=== PATIENT | male | born 1965 | race African-American/Black ===

== ENCOUNTER 2019-04-05 18:43 | Inpatient (IN) ==
[2019-04-05] MEDS ORDERED: SODIUM CHLORIDE 0.9% 1,000 ML IV STA (19:01)
[2019-04-05] MEDS ORDERED: ONDANSETRON 4 MG/2 ML VIAL IV STA (19:01)
[2019-04-05] MEDS ORDERED: PANTOPRAZOLE 40 MG VIAL IV STA (19:02)
[2019-04-05 19:31] LABS: Basophils % 0.1 % (0.0-0.8); Hemoglobin 10.9 GM/DL (14.0-18.0); Immature Granulocytes % 0.4 %; Immature Granulocytes Absolute 0.05 #; Lymphocytes # 0.9 10*3/uL (1.4-4.0); Lymphocytes % 7.1 % (21.2-54.2); Mean Corpuscular HGB Conc 35.2 GM/DL (32-36); Mean Corpuscular Volume 77.3 FL (87-102); Mean Platelet Volume 10.5 FL (9.6-12.0); Monocytes % 3.2 % (1.7-12.7); Neutrophils % 89.2 % (38.7-73.9); Platelet Count 344 T/CUMM (130-400); Red Blood Count 4.01 MC/CUMM (3.8-5.5); White Blood Count 12.9 T/CUMM (4-12)
[2019-04-05 19:40] LABS: Albumin 3.5 G/DL (3.4-5.0); Bilirubin,Total 0.5 MG/DL (0.2-1.0); Osmolality,Calculated 277.7 MOS/KG (273-304); Total Protein 8.3 G/DL (6.4-8.3)
[2019-04-05 21:21] LABS: Apearance,Urine CLEAR (Clear); Bilirubin,Urine Negative (Negative); Blood, Urine Small mg/dL (Negative); Glucose,Urine (UA) >=500 mg/dL (Negative); Granular Casts,Urine 1 /LPF (0-1); Hyaline Casts,Urine 11 /LPF (0-3); Ketones,Urine 5 mg/dL (Negative); Mucus,Urine Occasional /LPF (Occasional); Nitrite,Urine Negative (Negative); Protein,Urine >=500 MG/DL; RBC,Urine 18 /HPF (0-4); Squamous Epithelial Cell,Urine Occasional /HPF (0-10); Urine Color Yellow (Yellow); Urine Specific Gravity 1.015 (1.001-1.035); Urine Urobilinogen < 2.0 EU/DL (0.2-1.0); WBC,Urine 1 /HPF (0-6)
[2019-04-05] MEDS ORDERED: NICOTINE 21 MG/24 HR PATCH TRANSDERM PRN (22:01)
[2019-04-05] MEDS ORDERED: ACETAMINOPHEN 325 MG TABLET PO PRN (22:01)
[2019-04-05] MEDS: MORPHINE 4 MG/1 ML VIAL IV PRN (23:25)
[2019-04-06] MEDS: SODIUM CHLORIDE 0.9% 1,000 ML IV SCH ×5 (00:45→23:46)
[2019-04-06] MEDS: metroNIDAZOLE INJ 500 MG in PREMIX 1 EACH IV SCH ×4 (00:55→23:42)
[2019-04-06] MEDS ORDERED: METOPROLOL TARTRATE 5 MG/5 ML VIAL IV ONE (01:04)
[2019-04-06] MEDS: cefTRIAXone 1,000 MG in SYRINGE 1 EACH IV SCH ×3 (02:02→21:33)
[2019-04-06 02:18] LABS: Barbiturates Screen,Urine Negative (Negative); Benzodiazepines Screen,Urine Negative (Negative); Cannabinoid Screen,Urine Negative (Negative); Opiate Screen,Urine Negative (Negative); Phencyclidine Screen,Urine Negative (Negative)
[2019-04-06] MEDS: HYDROmorphone 2 MG/1 ML VIAL IV PRN ×2 (02:33→06:44)
[2019-04-06] MEDS: hydrALAZINE 20 MG/1 ML VIAL IV PRN ×2 (03:29→04:32)
[2019-04-06 04:59] LABS: Albumin 3.2 G/DL (3.4-5.0); Bilirubin,Total 0.6 MG/DL (0.2-1.0); Calcium 9.2 MG/DL (8.5-10.1); Total Protein 7.5 G/DL (6.4-8.3)
[2019-04-06] MEDS: PANTOPRAZOLE 40 MG TABLET PO SCH (08:23)
[2019-04-06] MEDS: INSULIN ASPART PROTAMINE/ASPART 70/30 100 UNIT/ML SUBCUT SCH ×2 (08:29→21:34)
[2019-04-06] MEDS ORDERED: amLODIPine 10 MG TABLET PO ONE (08:31)
[2019-04-06] MEDS ORDERED: LACTULOSE 20 GM/30 ML UDCUP PO ONE (08:35)
[2019-04-06] MEDS: INSULIN LISPRO 100 UNIT/ML SUBCUT SCH ×4 (08:38→21:34)
[2019-04-06] MEDS: METOPROLOL TARTRATE 25 MG TABLET PO SCH ×2 (09:16→21:34)
[2019-04-06 11:09] LABS: Basophils % 0.3 % (0.0-0.8); Eosinophils % 0.1 % (0.00-10.9); Hematocrit 27.8 VOL% (42.0-52.0); Hemoglobin 9.6 GM/DL (14.0-18.0); Immature Granulocytes % 0.4 %; Immature Granulocytes Absolute 0.06 #; Lymphocytes # 1.3 10*3/uL (1.4-4.0); Lymphocytes % 8.3 % (21.2-54.2); Mean Corpuscular HGB Conc 34.5 GM/DL (32-36); Mean Corpuscular Volume 79.4 FL (87-102); Mean Platelet Volume 10.7 FL (9.6-12.0); Monocytes % 9.3 % (1.7-12.7); Neutrophils % 81.6 % (38.7-73.9); Platelet Count 325 T/CUMM (130-400); Red Cell Distribution Width 14.6 % (9.3-17.3); White Blood Count 15.3 T/CUMM (4-12)
[2019-04-06 17:29] LABS: Protein/Creatinine Ratio,Urine 9.4 RATIO
[2019-04-06] MEDS: LACTULOSE 20 GM/30 ML UDCUP PO SCH (21:34)
[2019-04-07 04:02] LABS: Basophils % 0.2 % (0.0-0.8); Eosinophils % 0.3 % (0.00-10.9); Hematocrit 24.8 VOL% (42.0-52.0); Hemoglobin 8.4 GM/DL (14.0-18.0); Immature Granulocytes % 0.3 %; Immature Granulocytes Absolute 0.03 #; Lymphocytes # 1.5 10*3/uL (1.4-4.0); Lymphocytes % 14.1 % (21.2-54.2); Mean Corpuscular HGB Conc 33.9 GM/DL (32-36); Mean Corpuscular Volume 80.5 FL (87-102); Mean Platelet Volume 11.3 FL (9.6-12.0); Monocytes % 11.2 % (1.7-12.7); Neutrophils % 73.9 % (38.7-73.9); Platelet Count 273 T/CUMM (130-400); Red Blood Count 3.08 MC/CUMM (3.8-5.5); Red Cell Distribution Width 14.4 % (9.3-17.3); White Blood Count 10.8 T/CUMM (4-12)
[2019-04-07 04:33] LABS: Albumin 2.5 G/DL (3.4-5.0); Bilirubin,Total 0.6 MG/DL (0.2-1.0); Calcium 8.1 MG/DL (8.5-10.1); Osmolality,Calculated 300.3 MOS/KG (273-304); Total Protein 5.8 G/DL (6.4-8.3)
[2019-04-07] MEDS: MORPHINE 4 MG/1 ML VIAL IV PRN ×2 (04:41→08:47)
[2019-04-07] MEDS: ONDANSETRON 4 MG/2 ML VIAL IV PRN ×3 (04:45→20:46)
[2019-04-07] MEDS: HYDROmorphone 2 MG/1 ML VIAL IV PRN ×3 (05:42→17:45)
[2019-04-07] MEDS: metroNIDAZOLE INJ 500 MG in PREMIX 1 EACH IV SCH ×3 (07:18→22:32)
[2019-04-07] MEDS ORDERED: POTASSIUM CHLORIDE 20 MEQ TABLET PO PRN (07:49)
[2019-04-07] MEDS: amLODIPine 10 MG TABLET PO SCH (08:46)
[2019-04-07] MEDS: PANTOPRAZOLE 40 MG TABLET PO SCH (08:47)
[2019-04-07] MEDS: LACTULOSE 20 GM/30 ML UDCUP PO SCH ×2 (08:47→22:22)
[2019-04-07] MEDS: METOPROLOL TARTRATE 50 MG TABLET PO SCH ×2 (08:47→22:22)
[2019-04-07] MEDS ORDERED: ALUM/MAG/SIMETH/LIDO VISC 1:1 30 ML BOTTLE PO ONE (09:24)
[2019-04-07] MEDS: FAMOTIDINE 20 MG/2 ML VIAL IV SCH (10:20)
[2019-04-07] MEDS: cefTRIAXone 1,000 MG in SYRINGE 1 EACH IV SCH ×2 (10:22→22:19)
[2019-04-07] MEDS: INSULIN LISPRO 100 UNIT/ML SUBCUT SCH ×4 (10:30→20:52)
[2019-04-07] MEDS: INSULIN ASPART PROTAMINE/ASPART 70/30 100 UNIT/ML SUBCUT SCH ×2 (10:30→20:50)
[2019-04-07] MEDS: hydrALAZINE 20 MG/1 ML VIAL IV PRN (12:17)
[2019-04-07 13:24] LABS: Bilirubin,Total 0.4 MG/DL (0.2-1.0); Calcium 8.5 MG/DL (8.5-10.1); Total Protein 7.1 G/DL (6.4-8.3)
[2019-04-07] MEDS: SODIUM CHLORIDE 0.9% 1,000 ML IV SCH ×2 (14:30→15:51)
[2019-04-07] MEDS: POTASSIUM CHLORIDE RIDER 10 MEQ in PREMIX 1 EACH IV PRN ×2 (17:40→20:55)
[2019-04-08] MEDS: hydrALAZINE 20 MG/1 ML VIAL IV PRN ×3 (00:09→16:52)
[2019-04-08] MEDS: HYDROmorphone 2 MG/1 ML VIAL IV PRN ×4 (02:18→19:19)
[2019-04-08] MEDS: SODIUM CHLORIDE 0.9% 1,000 ML IV SCH ×4 (03:38→21:22)
[2019-04-08] MEDS: metroNIDAZOLE INJ 500 MG in PREMIX 1 EACH IV SCH (06:41)
[2019-04-08 07:48] LABS: Basophils % 0.3 % (0.0-0.8); Eosinophils % 0.1 % (0.00-10.9); Hematocrit 29.4 VOL% (42.0-52.0); Hemoglobin 9.6 GM/DL (14.0-18.0); Immature Granulocytes % 0.6 %; Immature Granulocytes Absolute 0.08 #; Lymphocytes # 1.3 10*3/uL (1.4-4.0); Lymphocytes % 8.9 % (21.2-54.2); Mean Corpuscular HGB Conc 32.7 GM/DL (32-36); Mean Corpuscular Volume 83.1 FL (87-102); Mean Platelet Volume 10.9 FL (9.6-12.0); Monocytes % 8.6 % (1.7-12.7); Neutrophils % 81.5 % (38.7-73.9); Platelet Count 324 T/CUMM (130-400); Red Blood Count 3.54 MC/CUMM (3.8-5.5); Red Cell Distribution Width 14.6 % (9.3-17.3); White Blood Count 14.3 T/CUMM (4-12)
[2019-04-08 08:11] LABS: Alanine Aminotransferase 15 U/L (16-61); Albumin 2.9 G/DL (3.4-5.0); Alkaline Phosphatase 79 U/L (45-117); Aspartate Amino Transferase 17 U/L (0-37); Bilirubin,Total < 0.39 MG/DL (0.2-1.0); Blood Urea Nitrogen 50 MG/DL (7-18); Calcium 8.5 MG/DL (8.5-10.1); Glucose 380 MG/DL (74-106); Osmolality,Calculated 305.5 MOS/KG (273-304); Total Protein 6.9 G/DL (6.4-8.3)
[2019-04-08] MEDS: FAMOTIDINE 20 MG/2 ML VIAL IV SCH (08:51)
[2019-04-08] MEDS: ONDANSETRON 4 MG/2 ML VIAL IV PRN ×3 (08:54→19:14)
[2019-04-08] MEDS: LACTULOSE 20 GM/30 ML UDCUP PO SCH ×2 (08:56→21:13)
[2019-04-08] MEDS: METOPROLOL TARTRATE 50 MG TABLET PO SCH ×2 (08:56→21:13)
[2019-04-08] MEDS: amLODIPine 10 MG TABLET PO SCH (08:56)
[2019-04-08] MEDS: INSULIN ASPART PROTAMINE/ASPART 70/30 100 UNIT/ML SUBCUT SCH ×2 (09:00→21:42)
[2019-04-08] MEDS: INSULIN LISPRO 100 UNIT/ML SUBCUT SCH ×4 (09:01→21:40)
[2019-04-08] MEDS ORDERED: POLYETHYLENE GLYCOL 3350/ELECTROLYTES 4,000 ML BOTTLE PO ONE (10:24)
[2019-04-08] MEDS: cefTRIAXone 1,000 MG in SYRINGE 1 EACH IV SCH (10:44)
[2019-04-08] MEDS: metroNIDAZOLE 500 MG TABLET PO SCH (21:13)
[2019-04-09] MEDS: HYDROmorphone 2 MG/1 ML VIAL IV PRN ×4 (00:05→18:02)
[2019-04-09] MEDS: hydrALAZINE 20 MG/1 ML VIAL IV PRN ×2 (04:28→09:30)
[2019-04-09 04:45] LABS: Basophils % 0.3 % (0.0-0.8); Eosinophils % 0.1 % (0.00-10.9); Hematocrit 28.6 VOL% (42.0-52.0); Immature Granulocytes % 0.6 %; Immature Granulocytes Absolute 0.09 #; Lymphocytes # 1.2 10*3/uL (1.4-4.0); Lymphocytes % 8.3 % (21.2-54.2); Mean Corpuscular HGB Conc 31.5 GM/DL (32-36); Mean Corpuscular Volume 85.4 FL (87-102); Monocytes % 8.5 % (1.7-12.7); Neutrophils % 82.2 % (38.7-73.9); Platelet Count 303 T/CUMM (130-400); Red Blood Count 3.35 MC/CUMM (3.8-5.5); Red Cell Distribution Width 15.1 % (9.3-17.3); White Blood Count 14.3 T/CUMM (4-12)
[2019-04-09 05:10] LABS: Albumin 2.7 G/DL (3.4-5.0); Bilirubin,Total 0.4 MG/DL (0.2-1.0); Calcium 8.6 MG/DL (8.5-10.1); Osmolality,Calculated 310.1 MOS/KG (273-304); Total Protein 6.4 G/DL (6.4-8.3)
[2019-04-09] MEDS: SODIUM CHLORIDE 0.9% 1,000 ML IV SCH (06:00)
[2019-04-09] MEDS: POTASSIUM CHLORIDE RIDER 10 MEQ in PREMIX 1 EACH IV PRN (06:30)
[2019-04-09] MEDS: ONDANSETRON 4 MG/2 ML VIAL IV PRN (09:30)
[2019-04-09] MEDS: FAMOTIDINE 20 MG/2 ML VIAL IV SCH (09:31)
[2019-04-09] MEDS: LACTULOSE 20 GM/30 ML UDCUP PO SCH ×2 (10:22→20:41)
[2019-04-09] MEDS: METOPROLOL TARTRATE 50 MG TABLET PO SCH ×2 (10:22→20:41)
[2019-04-09] MEDS: metroNIDAZOLE 500 MG TABLET PO SCH ×2 (10:22→20:41)
[2019-04-09] MEDS: amLODIPine 10 MG TABLET PO SCH (10:22)
[2019-04-09] MEDS: INSULIN ASPART PROTAMINE/ASPART 70/30 100 UNIT/ML SUBCUT SCH ×2 (10:22→20:40)
[2019-04-09] MEDS: INSULIN LISPRO 100 UNIT/ML SUBCUT SCH ×4 (10:22→20:40)
[2019-04-09] MEDS: SODIUM CHLORIDE 23.4% CONC INJ 38.5 MEQ, SODIUM BICARB INJ 50 MEQ, POTASSIUM CHLORIDE I... IV SCH ×3 (10:27→23:21)
[2019-04-09] MEDS: cefTRIAXone 1,000 MG in SYRINGE 1 EACH IV SCH (10:27)
[2019-04-10] MEDS: HYDROmorphone 2 MG/1 ML VIAL IV PRN ×3 (05:03→20:16)
[2019-04-10 05:06] LABS: Calcium 8.4 MG/DL (8.5-10.1); Osmolality,Calculated 304.3 MOS/KG (273-304)
[2019-04-10 05:11] LABS: Albumin 2.7 G/DL (3.4-5.0); Bilirubin,Total 0.4 MG/DL (0.2-1.0); Calcium 8.2 MG/DL (8.5-10.1); Osmolality,Calculated 304.3 MOS/KG (273-304)
[2019-04-10] MEDS: SODIUM CHLORIDE 23.4% CONC INJ 38.5 MEQ, SODIUM BICARB INJ 50 MEQ, POTASSIUM CHLORIDE I... IV SCH ×2 (06:20→14:59)
[2019-04-10] MEDS ORDERED: LACTATED RINGERS 1,000 ML IV SCH (08:00)
[2019-04-10] MEDS: INSULIN LISPRO 100 UNIT/ML SUBCUT SCH ×4 (08:18→22:06)
[2019-04-10] MEDS: metroNIDAZOLE 500 MG TABLET PO SCH ×2 (08:45→20:12)
[2019-04-10] MEDS: METOPROLOL TARTRATE 50 MG TABLET PO SCH ×2 (08:45→20:12)
[2019-04-10] MEDS: amLODIPine 10 MG TABLET PO SCH (08:45)
[2019-04-10] MEDS: hydrALAZINE 20 MG/1 ML VIAL IV PRN (08:46)
[2019-04-10] MEDS: FAMOTIDINE 20 MG/2 ML VIAL IV SCH (08:46)
[2019-04-10] MEDS: LACTULOSE 20 GM/30 ML UDCUP PO SCH ×2 (08:47→20:14)
[2019-04-10] MEDS: INSULIN ASPART PROTAMINE/ASPART 70/30 100 UNIT/ML SUBCUT SCH ×2 (08:47→22:04)
[2019-04-10] MEDS ORDERED: PROPOFOL 200 MG/20 ML VIAL IV ONE (09:30)
[2019-04-10] MEDS ORDERED: LIDOCAINE 2% 5 ML VIAL ONE (09:30)
[2019-04-10] MEDS ORDERED: BISACODYL 5 MG TABLET PO ONE (12:00)
[2019-04-10] MEDS: cefTRIAXone 1,000 MG in SYRINGE 1 EACH IV SCH (12:05)
[2019-04-10] MEDS: ONDANSETRON 4 MG/2 ML VIAL IV PRN (12:19)
[2019-04-10] MEDS: POTASSIUM CHLORIDE RIDER 10 MEQ in PREMIX 1 EACH IV PRN ×4 (14:00→18:07)
[2019-04-10] MEDS ORDERED: POLYETHYLENE GLYCOL POWDER 255 GM BOTTLE PO ONE (18:00)
[2019-04-11] MEDS: SODIUM CHLORIDE 23.4% CONC INJ 38.5 MEQ, SODIUM BICARB INJ 50 MEQ, POTASSIUM CHLORIDE I... IV SCH ×3 (01:03→16:50)
[2019-04-11 06:17] LABS: Basophils % 0.2 % (0.0-0.8); Eosinophils % 0.4 % (0.00-10.9); Hematocrit 29.7 VOL% (42.0-52.0); Hemoglobin 9.7 GM/DL (14.0-18.0); Immature Granulocytes % 0.2 %; Immature Granulocytes Absolute 0.02 #; Lymphocytes # 1.1 10*3/uL (1.4-4.0); Mean Corpuscular HGB Conc 32.7 GM/DL (32-36); Mean Corpuscular Volume 83.7 FL (87-102); Mean Platelet Volume 10.7 FL (9.6-12.0); Monocytes % 9.3 % (1.7-12.7); Neutrophils % 76.9 % (38.7-73.9); Platelet Count 266 T/CUMM (130-400); Red Blood Count 3.55 MC/CUMM (3.8-5.5); Red Cell Distribution Width 14.6 % (9.3-17.3); White Blood Count 8.1 T/CUMM (4-12)
[2019-04-11] MEDS ORDERED: LACTATED RINGERS 1,000 ML IV SCH (06:30)
[2019-04-11 06:39] LABS: Alanine Aminotransferase 34 U/L (16-61); Albumin 2.7 G/DL (3.4-5.0); Alkaline Phosphatase 99 U/L (45-117); Aspartate Amino Transferase 54 U/L (0-37); Bilirubin,Total < 0.39 MG/DL (0.2-1.0); Blood Urea Nitrogen 33 MG/DL (7-18); Calcium 8.5 MG/DL (8.5-10.1); Glucose 78 MG/DL (74-106); Osmolality,Calculated 284.4 MOS/KG (273-304); Total Protein 6.8 G/DL (6.4-8.3)
[2019-04-11] MEDS ORDERED: PROPOFOL 200 MG/20 ML VIAL IV ONE (08:00)
[2019-04-11] MEDS ORDERED: LIDOCAINE 2% 5 ML VIAL ONE (08:00)
[2019-04-11] MEDS ORDERED: PHENYLEPHRINE 1 MG/10 ML SYRINGE IV ONE (08:00)
[2019-04-11] MEDS: INSULIN LISPRO 100 UNIT/ML SUBCUT SCH ×4 (09:00→20:58)
[2019-04-11] MEDS: SODIUM CHLORIDE 0.9% 1,000 ML IV SCH (09:32)
[2019-04-11] MEDS: INSULIN ASPART PROTAMINE/ASPART 70/30 100 UNIT/ML SUBCUT SCH ×2 (10:10→20:58)
[2019-04-11] MEDS: HYDROmorphone 2 MG/1 ML VIAL IV PRN ×2 (12:22→20:35)
[2019-04-11] MEDS: amLODIPine 10 MG TABLET PO SCH (16:39)
[2019-04-11] MEDS: metroNIDAZOLE 500 MG TABLET PO SCH ×2 (16:39→20:35)
[2019-04-11] MEDS: METOPROLOL TARTRATE 50 MG TABLET PO SCH ×2 (16:39→20:35)
[2019-04-11] MEDS: LACTULOSE 20 GM/30 ML UDCUP PO SCH ×2 (16:40→20:57)
[2019-04-11] MEDS: FAMOTIDINE 20 MG/2 ML VIAL IV SCH (16:41)
[2019-04-11] MEDS: cefTRIAXone 1,000 MG in SYRINGE 1 EACH IV SCH (19:48)
[2019-04-11] MEDS: POTASSIUM CHLORIDE 20 MEQ TABLET PO SCH (20:35)
[2019-04-12] MEDS: HYDROmorphone 2 MG/1 ML VIAL IV PRN ×2 (01:07→08:33)
[2019-04-12] MEDS: SODIUM CHLORIDE 23.4% CONC INJ 38.5 MEQ, SODIUM BICARB INJ 50 MEQ, POTASSIUM CHLORIDE I... IV SCH ×4 (03:42→23:29)
[2019-04-12 08:01] LABS: Basophils % 0.3 % (0.0-0.8); Eosinophils # 0.1 10*3/uL (0.0-0.87); Eosinophils % 1.1 % (0.00-10.9); Hematocrit 28.5 VOL% (42.0-52.0); Hemoglobin 9.2 GM/DL (14.0-18.0); Immature Granulocytes % 0.4 %; Immature Granulocytes Absolute 0.04 #; Lymphocytes # 1.7 10*3/uL (1.4-4.0); Lymphocytes % 18.4 % (21.2-54.2); Mean Corpuscular HGB Conc 32.3 GM/DL (32-36); Mean Corpuscular Volume 84.3 FL (87-102); Mean Platelet Volume 11.5 FL (9.6-12.0); Monocytes % 10.1 % (1.7-12.7); Neutrophils % 69.7 % (38.7-73.9); Platelet Count 201 T/CUMM (130-400); Red Blood Count 3.38 MC/CUMM (3.8-5.5); Red Cell Distribution Width 14.6 % (9.3-17.3); White Blood Count 9.3 T/CUMM (4-12)
[2019-04-12] MEDS: INSULIN LISPRO 100 UNIT/ML SUBCUT SCH ×4 (08:18→20:49)
[2019-04-12] MEDS: INSULIN ASPART PROTAMINE/ASPART 70/30 100 UNIT/ML SUBCUT SCH ×2 (08:20→20:48)
[2019-04-12] MEDS: METOPROLOL TARTRATE 50 MG TABLET PO SCH ×2 (08:26→20:48)
[2019-04-12] MEDS: amLODIPine 10 MG TABLET PO SCH (08:26)
[2019-04-12 08:38] LABS: Calcium 8.2 MG/DL (8.5-10.1); Osmolality,Calculated 281.5 MOS/KG (273-304)
[2019-04-12] MEDS: metroNIDAZOLE 500 MG TABLET PO SCH ×2 (10:12→20:48)
[2019-04-12] MEDS: LACTULOSE 20 GM/30 ML UDCUP PO SCH ×3 (10:13→20:47)
[2019-04-12] MEDS: POTASSIUM CHLORIDE 20 MEQ TABLET PO SCH ×3 (10:13→20:48)
[2019-04-12] MEDS: FAMOTIDINE 20 MG/2 ML VIAL IV SCH (10:14)
[2019-04-12] MEDS: SODIUM CHLORIDE 0.9% 1,000 ML IV SCH (10:18)
[2019-04-12] MEDS: cefTRIAXone 1,000 MG in SYRINGE 1 EACH IV SCH (13:40)
[2019-04-13 06:55] LABS: Basophils % 0.3 % (0.0-0.8); Eosinophils # 0.1 10*3/uL (0.0-0.87); Hemoglobin 9.3 GM/DL (14.0-18.0); Immature Granulocytes % 0.5 %; Immature Granulocytes Absolute 0.05 #; Lymphocytes # 1.2 10*3/uL (1.4-4.0); Lymphocytes % 13.2 % (21.2-54.2); Mean Corpuscular HGB Conc 33.2 GM/DL (32-36); Mean Corpuscular Volume 83.3 FL (87-102); Mean Platelet Volume 11.4 FL (9.6-12.0); Monocytes % 9.6 % (1.7-12.7); Neutrophils % 75.4 % (38.7-73.9); Platelet Count 292 T/CUMM (130-400); Red Blood Count 3.36 MC/CUMM (3.8-5.5); Red Cell Distribution Width 14.2 % (9.3-17.3); White Blood Count 9.3 T/CUMM (4-12)
[2019-04-13 07:20] LABS: Calcium 8.3 MG/DL (8.5-10.1); Osmolality,Calculated 279.8 MOS/KG (273-304)
[2019-04-13] MEDS: LACTULOSE 20 GM/30 ML UDCUP PO SCH (09:19)
[2019-04-13] MEDS: metroNIDAZOLE 500 MG TABLET PO SCH (09:19)
[2019-04-13] MEDS: INSULIN LISPRO 100 UNIT/ML SUBCUT SCH ×2 (09:19→12:42)
[2019-04-13] MEDS: INSULIN ASPART PROTAMINE/ASPART 70/30 100 UNIT/ML SUBCUT SCH (09:20)
[2019-04-13] MEDS: POTASSIUM CHLORIDE 20 MEQ TABLET PO SCH (09:20)
[2019-04-13] MEDS: METOPROLOL TARTRATE 50 MG TABLET PO SCH (09:20)
[2019-04-13] MEDS: FAMOTIDINE 20 MG/2 ML VIAL IV SCH (09:20)
[2019-04-13] MEDS: amLODIPine 10 MG TABLET PO SCH (09:20)
[2019-04-13 11:48] VITALS: BP 188/92
[2019-04-13] MEDS: cefTRIAXone 1,000 MG in SYRINGE 1 EACH IV SCH (12:42)
== END 2019-04-13 12:46 | disposition home or self-care (01) | DRG 683 ==
LOC: EDUNIT# → EDBD → N.ED 18:43 → N.EDINP 18:43 → SUATTDRO 21:54 → N.3E 22:20 → SUATTDRO 04-08 09:43
PROVIDERS: ADMIT Internal Medicine Nephrology; ATTEND Hospitalist

== ENCOUNTER 2019-05-24 14:02 | Inpatient (IN) ==
[2019-05-24] MEDS ORDERED: ACETAMINOPHEN 325 MG TABLET PO PRN (14:47)
[2019-05-24] MEDS ORDERED: DEXTROSE 10% 250 ML BAG IV PRN ×3 (14:47→16:18)
[2019-05-24] MEDS ORDERED: ONDANSETRON 4 MG/2 ML VIAL IV PRN (14:47)
[2019-05-24] MEDS ORDERED: GLUCAGON 1 MG VIAL IM PRN (14:47)
[2019-05-24 15:29] LABS: Allen Test Positive; Pt O2 Delivery Device Room Air
[2019-05-24 15:30] LABS: ABG Base Excess 0.2 MMOL/L (-2.5-2.5); ABG HCO3 24.7 MMOL/L (20-26); ABG PCO2 43.5 MM HG (35-48); ABG PH 7.375 (7.35-7.45)
[2019-05-24] MEDS ORDERED: MAGNESIUM SULF RIDER 4 GM in PREMIX 1 EACH IV PRN (15:52)
[2019-05-24] MEDS ORDERED: SODIUM CHLORIDE 0.9% 1,000 ML IV ONE ×2 (15:52→16:18)
[2019-05-24] MEDS ORDERED: DEXTROSE 50% 25 GM/50 ML VIAL IV PRN (15:52)
[2019-05-24] MEDS ORDERED: INSULIN REGULAR 100 UNIT/ML IV ONE ×2 (15:52→16:18)
[2019-05-24] MEDS ORDERED: MAGNESIUM SULF RIDER 2 GM in PREMIX 1 EACH IV PRN (15:52)
[2019-05-24] MEDS ORDERED: SODIUM CHLORIDE 0.9% 1,000 ML IV PRN (16:05)
[2019-05-24] MEDS ORDERED: SODIUM PHOSPHATE INJ 18.7 MMOL in SODIUM CHLORIDE 0.9% 250 ML IV PRN (16:18)
[2019-05-24] MEDS ORDERED: SODIUM BICARB INJ 100 MEQ in STERILE WATER INJ 400 ML IV PRN (16:18)
[2019-05-24] MEDS ORDERED: INSULIN REGULAR DRIP 100 ML IV SCH (16:30)
[2019-05-24 16:43] LABS: Calcium 8.8 MG/DL (8.5-10.1); Osmolality,Calculated 307.4 MOS/KG (273-304)
[2019-05-24] MEDS ORDERED: SODIUM CHLORIDE 0.9% 1,000 ML IV SCH ×3 (16:52→21:19)
[2019-05-24] MEDS: INSULIN REGULAR 100 UNIT/ML SUBCUT SCH ×2 (19:02→20:18)
[2019-05-24] MEDS ORDERED: hydrALAZINE 20 MG/1 ML VIAL IV PRN (19:10)
[2019-05-24] MEDS ORDERED: hydrALAZINE 20 MG/1 ML VIAL IV ONE (19:12)
[2019-05-24] MEDS: SODIUM CHLORIDE 0.9% 1,000 ML IV SCH ×2 (19:22→21:31)
[2019-05-24 19:29] LABS: Apearance,Urine CLEAR (Clear); Bilirubin,Urine Negative (Negative); Blood, Urine Moderate mg/dL (Negative); Glucose,Urine (UA) >=500 mg/dL (Negative); Ketones,Urine Negative (Negative); Mucus,Urine Occasional /LPF (Occasional); Nitrite,Urine Negative (Negative); Protein,Urine 100 MG/DL; RBC,Urine 1 /HPF (0-4); Urine Color Straw (Yellow); Urine Specific Gravity 1.014 (1.001-1.035); Urine Urobilinogen < 2.0 EU/DL (0.2-1.0); WBC,Urine <1 /HPF (0-6)
[2019-05-24] MEDS: DOCUSATE SODIUM 100 MG CAPSULE PO SCH (20:17)
[2019-05-24] MEDS: SIMVASTATIN 20 MG TABLET PO SCH (20:17)
[2019-05-24] MEDS: METOPROLOL TARTRATE 50 MG TABLET PO SCH (20:17)
[2019-05-24] MEDS: PIPERACILLIN/TAZOBACTAM 3,375 MG in SODIUM CHLORIDE 0.9% 100 ML IV SCH (20:18)
[2019-05-24] MEDS ORDERED: FUROSEMIDE 20 MG/2 ML VIAL IV ONE (21:00)
[2019-05-24] MEDS ORDERED: ENOXAPARIN 40 MG/0.4 ML SYRINGE SUBCUT SCH (21:00)
[2019-05-24 22:32] LABS: Calcium 7.7 MG/DL (8.5-10.1); Osmolality,Calculated 300.2 MOS/KG (273-304)
[2019-05-24] MEDS: METOPROLOL TARTRATE 5 MG/5 ML VIAL IV SCH (23:37)
[2019-05-25 00:39] LABS: Osmolality,Calculated 295.2 MOS/KG (273-304)
[2019-05-25] MEDS: VANCOMYCIN INJ 1,250 MG in SODIUM CHLORIDE 0.9% 250 ML IV SCH (01:37)
[2019-05-25] MEDS: POTASSIUM CHLORIDE RIDER 10 MEQ in PREMIX 1 EACH IV PRN ×4 (01:51→04:37)
[2019-05-25] MEDS: SODIUM CHLORIDE 0.9% 1,000 ML IV SCH ×2 (01:55→06:19)
[2019-05-25] MEDS: METOPROLOL TARTRATE 5 MG/5 ML VIAL IV SCH (06:15)
[2019-05-25 06:29] LABS: Basophils % 0.2 % (0.0-0.8); Eosinophils # 0.2 10*3/uL (0.0-0.87); Hematocrit 26.7 VOL% (42.0-52.0); Hemoglobin 9.2 GM/DL (14.0-18.0); Immature Granulocytes % 0.5 %; Immature Granulocytes Absolute 0.08 #; Lymphocytes # 1.3 10*3/uL (1.4-4.0); Lymphocytes % 8.4 % (21.2-54.2); Mean Corpuscular HGB Conc 34.5 GM/DL (32-36); Mean Corpuscular Volume 79.9 FL (87-102); Mean Platelet Volume 11.8 FL (9.6-12.0); Monocytes % 8.8 % (1.7-12.7); Neutrophils % 81.1 % (38.7-73.9); Platelet Count 213 T/CUMM (130-400); Red Blood Count 3.34 MC/CUMM (3.8-5.5); White Blood Count 15.7 T/CUMM (4-12)
[2019-05-25] MEDS ORDERED: DEXTROSE 5% NACL 0.9% 1,000 ML IV SCH (06:30)
[2019-05-25 06:49] LABS: PT Patient Result 10.7 SECS
[2019-05-25 06:54] LABS: Albumin 1.7 G/DL (3.4-5.0); Bilirubin,Total 0.4 MG/DL (0.2-1.0); Calcium 8.2 MG/DL (8.5-10.1); Total Protein 6.5 G/DL (6.4-8.3)
[2019-05-25 07:04] LABS: Thyroid Stimulating Hormone 1.49 uIU/ml (0.358-3.74)
[2019-05-25 07:18] LABS: Hypochromasia 1+; Platelet Estimate Adequate
[2019-05-25] MEDS: INSULIN REGULAR 100 UNIT/ML SUBCUT SCH ×2 (07:42→12:22)
[2019-05-25] MEDS: DEXT 5% NACL 0.45% KCL 20 MEQ 20 MEQ/1,000 ML BAG IV SCH ×2 (07:54→12:23)
[2019-05-25] MEDS: METOPROLOL TARTRATE 50 MG TABLET PO SCH ×2 (08:02→20:32)
[2019-05-25 08:03] LABS: Calcium 7.5 MG/DL (8.5-10.1)
[2019-05-25] MEDS: DOCUSATE SODIUM 100 MG CAPSULE PO SCH ×2 (08:03→20:31)
[2019-05-25] MEDS ORDERED: SODIUM CHLORIDE 0.45% 1,000 ML IV SCH ×2 (08:52→09:19)
[2019-05-25] MEDS ORDERED: amLODIPine 5 MG TABLET PO SCH (09:00)
[2019-05-25] MEDS: PANTOPRAZOLE 40 MG TABLET PO SCH (09:37)
[2019-05-25] MEDS: PIPERACILLIN/TAZOBACTAM 3,375 MG in SODIUM CHLORIDE 0.9% 100 ML IV SCH ×2 (09:37→20:33)
[2019-05-25] MEDS ORDERED: LIDOCAINE 1% 20 ML VIAL ONE (09:51)
[2019-05-25] MEDS ORDERED: hydrALAZINE 20 MG/1 ML VIAL IV ONE (10:30)
[2019-05-25] MEDS ORDERED: PROPOFOL 200 MG/20 ML VIAL IV ONE (11:32)
[2019-05-25] MEDS ORDERED: SEVOFLURANE 1 UNIT/15 MINUTE INH ONE (11:32)
[2019-05-25] MEDS ORDERED: fentaNYL 100 MCG/2 ML VIAL ONE (11:32)
[2019-05-25] MEDS ORDERED: MIDAZOLAM 2 MG/2 ML VIAL ONE (11:33)
[2019-05-25 13:15] LABS: Calcium 8.3 MG/DL (8.5-10.1); Osmolality,Calculated 282.7 MOS/KG (273-304)
[2019-05-25] MEDS: INSULIN GLARGINE 100 UNIT/ML SUBCUT SCH (13:34)
[2019-05-25] MEDS: HYDROmorphone 2 MG/1 ML VIAL IV PRN ×4 (15:29→23:56)
[2019-05-25] MEDS: POTASSIUM CHLORIDE 20 MEQ TABLET PO PRN ×3 (15:47→20:31)
[2019-05-25] MEDS ORDERED: FUROSEMIDE 20 MG TABLET PO SCH (16:00)
[2019-05-25] MEDS ORDERED: cloNIDine 0.1 MG/24 HR PATCH TRANSDERM SCH (16:00)
[2019-05-25] MEDS: hydrALAZINE 20 MG/1 ML VIAL IV PRN ×2 (16:36→22:34)
[2019-05-25] MEDS: INSULIN LISPRO 100 UNIT/ML SUBCUT SCH ×4 (16:44→21:25)
[2019-05-25] MEDS ORDERED: amLODIPine 5 MG TABLET PO ONE (18:14)
[2019-05-25] MEDS: SIMVASTATIN 20 MG TABLET PO SCH (20:32)
[2019-05-25] MEDS: ENOXAPARIN 30 MG/0.3 ML SYRINGE SUBCUT SCH (20:32)
[2019-05-26] MEDS: METOPROLOL TARTRATE 5 MG/5 ML VIAL IV PRN ×2 (02:15→13:18)
[2019-05-26 03:50] LABS: Basophils % 0.3 % (0.0-0.8); Eosinophils # 0.1 10*3/uL (0.0-0.87); Eosinophils % 0.9 % (0.00-10.9); Hematocrit 31.1 VOL% (42.0-52.0); Hemoglobin 10.4 GM/DL (14.0-18.0); Immature Granulocytes % 0.8 %; Immature Granulocytes Absolute 0.12 #; Lymphocytes # 1.7 10*3/uL (1.4-4.0); Lymphocytes % 11.4 % (21.2-54.2); Mean Corpuscular HGB Conc 33.4 GM/DL (32-36); Mean Corpuscular Volume 81.6 FL (87-102); Mean Platelet Volume 9.8 FL (9.6-12.0); Monocytes % 9.7 % (1.7-12.7); Neutrophils % 76.9 % (38.7-73.9); Platelet Count 406 T/CUMM (130-400); Red Blood Count 3.81 MC/CUMM (3.8-5.5); Red Cell Distribution Width 14.6 % (9.3-17.3); White Blood Count 14.8 T/CUMM (4-12)
[2019-05-26 04:11] LABS: Calcium 8.3 MG/DL (8.5-10.1); Osmolality,Calculated 277.8 MOS/KG (273-304)
[2019-05-26] MEDS: POTASSIUM CHLORIDE 20 MEQ TABLET PO PRN (04:41)
[2019-05-26] MEDS: hydrALAZINE 20 MG/1 ML VIAL IV PRN ×2 (04:41→11:36)
[2019-05-26] MEDS: INSULIN LISPRO 100 UNIT/ML SUBCUT SCH ×4 (07:46→20:11)
[2019-05-26] MEDS: PIPERACILLIN/TAZOBACTAM 3,375 MG in SODIUM CHLORIDE 0.9% 100 ML IV SCH ×2 (08:10→20:11)
[2019-05-26] MEDS: INSULIN GLARGINE 100 UNIT/ML SUBCUT SCH (08:11)
[2019-05-26] MEDS: PANTOPRAZOLE 40 MG TABLET PO SCH (08:12)
[2019-05-26] MEDS: DOCUSATE SODIUM 100 MG CAPSULE PO SCH ×2 (08:12→20:09)
[2019-05-26] MEDS: amLODIPine 10 MG TABLET PO SCH (08:12)
[2019-05-26] MEDS: METOPROLOL TARTRATE 50 MG TABLET PO SCH ×2 (08:12→20:09)
[2019-05-26] MEDS ORDERED: cloNIDine 0.2 MG/24 HR PATCH TRANSDERM SCH (09:00)
[2019-05-26] MEDS: HYDROmorphone 2 MG/1 ML VIAL IV PRN ×3 (09:00→20:11)
[2019-05-26] MEDS ORDERED: DOXAZOSIN 1 MG TABLET PO ONE (13:41)
[2019-05-26] MEDS: SIMVASTATIN 20 MG TABLET PO SCH (20:09)
[2019-05-26] MEDS: ENOXAPARIN 30 MG/0.3 ML SYRINGE SUBCUT SCH (20:11)
[2019-05-26] MEDS ORDERED: DOXAZOSIN 1 MG TABLET PO SCH (21:00)
[2019-05-27] MEDS: VANCOMYCIN INJ 1,250 MG in SODIUM CHLORIDE 0.9% 250 ML IV SCH (01:08)
[2019-05-27] MEDS: hydrALAZINE 20 MG/1 ML VIAL IV PRN ×2 (03:49→09:15)
[2019-05-27 03:54] LABS: Basophils # 0.1 10*3/uL (0.0-0.2); Basophils % 0.4 % (0.0-0.8); Eosinophils # 0.1 10*3/uL (0.0-0.87); Eosinophils % 0.8 % (0.00-10.9); Hematocrit 27.9 VOL% (42.0-52.0); Immature Granulocytes Absolute 0.13 #; Lymphocytes # 1.5 10*3/uL (1.4-4.0); Lymphocytes % 10.8 % (21.2-54.2); Mean Corpuscular HGB Conc 32.3 GM/DL (32-36); Mean Corpuscular Volume 84.5 FL (87-102); Mean Platelet Volume 9.8 FL (9.6-12.0); Platelet Count 366 T/CUMM (130-400); Red Cell Distribution Width 14.6 % (9.3-17.3); White Blood Count 13.4 T/CUMM (4-12)
[2019-05-27 04:08] LABS: Calcium 7.9 MG/DL (8.5-10.1); Osmolality,Calculated 282.5 MOS/KG (273-304)
[2019-05-27] MEDS: HYDROmorphone 2 MG/1 ML VIAL IV PRN ×4 (05:02→20:25)
[2019-05-27] MEDS: METOPROLOL TARTRATE 5 MG/5 ML VIAL IV PRN ×2 (06:44→12:57)
[2019-05-27] MEDS: INSULIN LISPRO 100 UNIT/ML SUBCUT SCH ×5 (07:52→20:32)
[2019-05-27] MEDS: INSULIN GLARGINE 100 UNIT/ML SUBCUT SCH (08:14)
[2019-05-27] MEDS: DOXAZOSIN 1 MG TABLET PO SCH ×2 (08:14→20:26)
[2019-05-27] MEDS: DOCUSATE SODIUM 100 MG CAPSULE PO SCH ×2 (08:14→20:26)
[2019-05-27] MEDS: amLODIPine 10 MG TABLET PO SCH (08:15)
[2019-05-27] MEDS: FUROSEMIDE 20 MG TABLET PO SCH (08:15)
[2019-05-27] MEDS: PIPERACILLIN/TAZOBACTAM 3,375 MG in SODIUM CHLORIDE 0.9% 100 ML IV SCH ×2 (08:15→20:26)
[2019-05-27] MEDS: METOPROLOL TARTRATE 50 MG TABLET PO SCH ×2 (08:15→20:26)
[2019-05-27] MEDS: PANTOPRAZOLE 40 MG TABLET PO SCH (08:15)
[2019-05-27] MEDS: SIMVASTATIN 20 MG TABLET PO SCH (20:26)
[2019-05-27] MEDS: ENOXAPARIN 30 MG/0.3 ML SYRINGE SUBCUT SCH (20:26)
[2019-05-28] MEDS: HYDROmorphone 2 MG/1 ML VIAL IV PRN ×5 (04:15→22:35)
[2019-05-28 05:04] LABS: Basophils % 0.1 % (0.0-0.8); Eosinophils # 0.1 10*3/uL (0.0-0.87); Eosinophils % 0.8 % (0.00-10.9); Hematocrit 25.3 VOL% (42.0-52.0); Hemoglobin 8.5 GM/DL (14.0-18.0); Immature Granulocytes % 1.1 %; Immature Granulocytes Absolute 0.15 #; Lymphocytes # 1.4 10*3/uL (1.4-4.0); Lymphocytes % 9.7 % (21.2-54.2); Mean Corpuscular HGB Conc 33.6 GM/DL (32-36); Mean Corpuscular Volume 84.3 FL (87-102); Mean Platelet Volume 9.8 FL (9.6-12.0); Monocytes % 11.5 % (1.7-12.7); Neutrophils % 76.8 % (38.7-73.9); Platelet Count 377 T/CUMM (130-400); Red Cell Distribution Width 14.4 % (9.3-17.3); White Blood Count 14.3 T/CUMM (4-12)
[2019-05-28 05:17] LABS: Calcium 8.3 MG/DL (8.5-10.1); Osmolality,Calculated 286.3 MOS/KG (273-304)
[2019-05-28] MEDS: INSULIN LISPRO 100 UNIT/ML SUBCUT SCH ×4 (07:30→21:03)
[2019-05-28] MEDS: DOCUSATE SODIUM 100 MG CAPSULE PO SCH ×2 (08:30→21:27)
[2019-05-28] MEDS: PIPERACILLIN/TAZOBACTAM 3,375 MG in SODIUM CHLORIDE 0.9% 100 ML IV SCH ×2 (08:30→21:28)
[2019-05-28] MEDS: METOPROLOL TARTRATE 50 MG TABLET PO SCH ×2 (08:30→21:27)
[2019-05-28] MEDS: FUROSEMIDE 20 MG TABLET PO SCH (08:30)
[2019-05-28] MEDS: amLODIPine 10 MG TABLET PO SCH (08:30)
[2019-05-28] MEDS: DOXAZOSIN 1 MG TABLET PO SCH ×2 (08:30→21:27)
[2019-05-28] MEDS: PANTOPRAZOLE 40 MG TABLET PO SCH (08:30)
[2019-05-28] MEDS: INSULIN GLARGINE 100 UNIT/ML SUBCUT SCH (09:00)
[2019-05-28] MEDS: ENOXAPARIN 30 MG/0.3 ML SYRINGE SUBCUT SCH (21:27)
[2019-05-28] MEDS: SIMVASTATIN 20 MG TABLET PO SCH (21:28)
[2019-05-28] MEDS: hydrALAZINE 20 MG/1 ML VIAL IV PRN (22:34)
[2019-05-29] MEDS: VANCOMYCIN INJ 1,250 MG in SODIUM CHLORIDE 0.9% 250 ML IV SCH (01:37)
[2019-05-29] MEDS: HYDROmorphone 2 MG/1 ML VIAL IV PRN ×3 (04:41→17:02)
[2019-05-29 04:56] LABS: Calcium 8.3 MG/DL (8.5-10.1); Osmolality,Calculated 284.3 MOS/KG (273-304)
[2019-05-29] MEDS: METOPROLOL TARTRATE 50 MG TABLET PO SCH ×2 (11:10→21:28)
[2019-05-29] MEDS: GABAPENTIN 100 MG CAPSULE PO SCH ×2 (11:10→21:27)
[2019-05-29] MEDS: amLODIPine 10 MG TABLET PO SCH (11:10)
[2019-05-29] MEDS: PIPERACILLIN/TAZOBACTAM 3,375 MG in SODIUM CHLORIDE 0.9% 100 ML IV SCH ×2 (11:10→21:29)
[2019-05-29] MEDS: DOCUSATE SODIUM 100 MG CAPSULE PO SCH ×2 (11:10→21:28)
[2019-05-29] MEDS: DOXAZOSIN 1 MG TABLET PO SCH ×2 (11:10→21:27)
[2019-05-29] MEDS: INSULIN GLARGINE 100 UNIT/ML SUBCUT SCH (11:10)
[2019-05-29] MEDS: FUROSEMIDE 20 MG TABLET PO SCH (11:10)
[2019-05-29] MEDS: PANTOPRAZOLE 40 MG TABLET PO SCH (11:10)
[2019-05-29] MEDS: hydrALAZINE 25 MG TABLET PO SCH ×2 (16:05→21:28)
[2019-05-29] MEDS: INSULIN LISPRO 100 UNIT/ML SUBCUT SCH ×3 (16:55→21:29)
[2019-05-29] MEDS: ENOXAPARIN 30 MG/0.3 ML SYRINGE SUBCUT SCH (21:28)
[2019-05-29] MEDS: SIMVASTATIN 20 MG TABLET PO SCH (21:28)
[2019-05-30] MEDS: HYDROmorphone 2 MG/1 ML VIAL IV PRN (06:13)
[2019-05-30] MEDS: INSULIN LISPRO 100 UNIT/ML SUBCUT SCH ×2 (07:54→12:21)
[2019-05-30] MEDS: DOXAZOSIN 1 MG TABLET PO SCH (08:23)
[2019-05-30] MEDS: hydrALAZINE 25 MG TABLET PO SCH (08:24)
[2019-05-30] MEDS: GABAPENTIN 100 MG CAPSULE PO SCH (08:24)
[2019-05-30] MEDS: amLODIPine 10 MG TABLET PO SCH (08:24)
[2019-05-30] MEDS: PANTOPRAZOLE 40 MG TABLET PO SCH (08:24)
[2019-05-30] MEDS: DOCUSATE SODIUM 100 MG CAPSULE PO SCH (08:24)
[2019-05-30] MEDS: METOPROLOL TARTRATE 50 MG TABLET PO SCH (08:24)
[2019-05-30] MEDS: INSULIN GLARGINE 100 UNIT/ML SUBCUT SCH (08:25)
[2019-05-30] MEDS: FUROSEMIDE 20 MG TABLET PO SCH (08:25)
[2019-05-30] MEDS: PIPERACILLIN/TAZOBACTAM 3,375 MG in SODIUM CHLORIDE 0.9% 100 ML IV SCH (08:30)
[2019-05-30 11:58] LABS: Basophils % 0.3 % (0.0-0.8); Eosinophils # 0.1 10*3/uL (0.0-0.87); Eosinophils % 0.9 % (0.00-10.9); Hematocrit 28.3 VOL% (42.0-52.0); Hemoglobin 9.1 GM/DL (14.0-18.0); Immature Granulocytes % 0.7 %; Lymphocytes # 1.2 10*3/uL (1.4-4.0); Lymphocytes % 8.3 % (21.2-54.2); Mean Corpuscular HGB Conc 32.2 GM/DL (32-36); Mean Corpuscular Volume 86.5 FL (87-102); Mean Platelet Volume 9.8 FL (9.6-12.0); Monocytes % 7.4 % (1.7-12.7); Neutrophils % 82.4 % (38.7-73.9); Red Blood Count 3.27 MC/CUMM (3.8-5.5); Red Cell Distribution Width 14.6 % (9.3-17.3); White Blood Count 13.8 T/CUMM (4-12)
[2019-05-30 12:12] LABS: Platelet Count 513 T/CUMM (130-400)
[2019-05-30 12:16] LABS: Calcium 8.5 MG/DL (8.5-10.1); Osmolality,Calculated 287.5 MOS/KG (273-304)
[2019-05-30] MEDS: hydrALAZINE 20 MG/1 ML VIAL IV PRN (12:52)
[2019-05-30] MEDS ORDERED: hydrALAZINE 25 MG TABLET PO SCH (15:00)
[2019-05-30 15:50] VITALS: BP 154/71
== END 2019-05-30 16:06 | DRG 617 ==
LOC: N.3E 14:30 → N.ICU 17:02 → N.2E 05-29 20:40
PROVIDERS: ADMIT Family Medicine; ATTEND Family Medicine

== ENCOUNTER 2021-05-01 06:07 | Inpatient (IN) ==
[2021-05-01] MEDS ORDERED: VANCOMYCIN INJ 1,000 MG in SODIUM CHLORIDE 0.9% 250 ML IV STA (06:42)
[2021-05-01] MEDS ORDERED: PIPERACILLIN/TAZOBACTAM 3,375 MG in SODIUM CHLORIDE 0.9% 100 ML IV STA (06:42)
[2021-05-01] MEDS ORDERED: HYDROmorphone 2 MG/1 ML VIAL IV STA (07:21)
[2021-05-01] MEDS ORDERED: ONDANSETRON 4 MG/2 ML VIAL IV STA (07:21)
[2021-05-01 07:28] LABS: Basophils # 0.1 10*3/uL (0.0-0.2); Basophils % 0.2 % (0.0-0.8); Hemoglobin 10.9 GM/DL (14.0-18.0); Immature Granulocytes Absolute 2.05 #; Lymphocytes # 0.5 10*3/uL (1.4-4.0); Lymphocytes % 1.4 % (21.2-54.2); Mean Corpuscular HGB Conc 31.1 GM/DL (32-36); Mean Corpuscular Volume 88.4 FL (87-102); Mean Platelet Volume 12.8 FL (9.6-12.0); Monocytes % 3.8 % (1.7-12.7); Neutrophils % 88.6 % (38.7-73.9); Platelet Count 323 T/CUMM (130-400); Red Blood Count 3.96 MC/CUMM (3.8-5.5); Red Cell Distribution Width 14.2 % (9.3-17.3); White Blood Count 34.2 T/CUMM (4-12)
[2021-05-01 07:50] LABS: Band Neutrophils 3 % (0-10); Lymphocytes 1 % (20-55); Segmented Neutrophils 88 % (50-85); Total Cells Counted 100
[2021-05-01 07:51] LABS: Hypochromasia 1+
[2021-05-01 07:52] LABS: Microcytosis 1+; Platelet Estimate Normal
[2021-05-01 08:09] LABS: Albumin 2.4 G/DL (3.4-5.0); Bilirubin,Total 0.5 MG/DL (0.20-1.00); Calcium 8.2 MG/DL (8.5-10.1); Osmolality,Calculated 301.2 MOS/KG (273-304); Potassium 3.5 MMOL/L (3.5-5.1); Total Protein 8.3 G/DL (6.4-8.2)
[2021-05-01] MEDS ORDERED: VANCOMYCIN 1,000 MG VIAL ONE (08:09)
[2021-05-01] MEDS ORDERED: INSULIN REGULAR 100 UNIT/ML IV STA (08:22)
[2021-05-01] MEDS ORDERED: ALBUTEROL 2.5 MG/3 ML NEB RESP TX PRN (08:35)
[2021-05-01] MEDS ORDERED: SODIUM PHOSPHATE INJ 15 MMOL in SODIUM CHLORIDE 0.9% 250 ML IV PRN (09:02)
[2021-05-01] MEDS ORDERED: SODIUM BICARB INJ 100 MEQ in STERILE WATER INJ 400 ML IV PRN (09:02)
[2021-05-01] MEDS ORDERED: DEXTROSE 50% 25 GM/50 ML VIAL IV PRN (09:02)
[2021-05-01] MEDS ORDERED: POTASSIUM CHLORIDE RIDER 10 MEQ/100 ML PREMIX IV PRN (09:02)
[2021-05-01] MEDS ORDERED: MAGNESIUM SULF RIDER 4 GM/100 ML PREMIX IV PRN (09:02)
[2021-05-01] MEDS ORDERED: MAGNESIUM SULF RIDER 2 GM/50 ML PREMIX IV PRN (09:02)
[2021-05-01] MEDS ORDERED: INSULIN REGULAR 100 UNIT/ML IV ONE (09:02)
[2021-05-01] MEDS ORDERED: LACTATED RINGERS 2,000 ML IV ONE (09:04)
[2021-05-01] MEDS ORDERED: INSULIN REGULAR DRIP 100 ML IV SCH (11:00)
[2021-05-01] MEDS ORDERED: VANCOMYCIN INJ 500 MG in SODIUM CHLORIDE 0.9% 100 ML IV PRN (11:13)
[2021-05-01] MEDS ORDERED: VANCOMYCIN INJ 1,250 MG in SODIUM CHLORIDE 0.9% 250 ML IV ONE (11:30)
[2021-05-01] MEDS ORDERED: VANCOMYCIN INJ 500 MG in SODIUM CHLORIDE 0.9% 100 ML IV ONE (12:00)
[2021-05-01] MEDS: SODIUM CHLORIDE 0.9% 1,000 ML IV SCH ×2 (12:24→20:39)
[2021-05-01 12:27] LABS: Calcium 7.8 MG/DL (8.5-10.1); Osmolality,Calculated 286.6 MOS/KG (273-304); Potassium 3.3 MMOL/L (3.5-5.1)
[2021-05-01] MEDS ORDERED: ALUMINUM/MAGNES/SIMETH MAX STR 30 ML UDCUP PO PRN (18:07)
[2021-05-01 21:10] LABS: Calcium 8.5 MG/DL (8.5-10.1); Osmolality,Calculated 273.4 MOS/KG (273-304); Potassium 2.9 MMOL/L (3.5-5.1)
[2021-05-01] MEDS: PIPERACILLIN/TAZOBACTAM 3,375 MG in SODIUM CHLORIDE 0.9% 100 ML IV SCH (21:36)
[2021-05-01] MEDS: DEXTROSE 5% KCL 20 MEQ 20 MEQ/1,000 ML BAG IV SCH (21:41)
[2021-05-01] MEDS: DEXTROSE 5% 1,000 ML IV SCH (22:54)
[2021-05-01] MEDS: DEXTROSE 50% 25 GM/50 ML VIAL IV PRN (23:27)
[2021-05-02] MEDS: ONDANSETRON 4 MG/2 ML VIAL IV PRN ×2 (03:13→06:38)
[2021-05-02 03:44] LABS: Basophils # 0.1 10*3/uL (0.0-0.2); Basophils % 0.2 % (0.0-0.8); Eosinophils # 0.1 10*3/uL (0.0-0.87); Eosinophils % 0.1 % (0.00-10.9); Hematocrit 29.6 VOL% (42.0-52.0); Immature Granulocytes Absolute 0.34 #; Lymphocytes # 1.4 10*3/uL (1.4-4.0); Lymphocytes % 4.3 % (21.2-54.2); Mean Corpuscular HGB Conc 33.8 GM/DL (32-36); Mean Corpuscular Volume 82.7 FL (87-102); Monocytes % 5.6 % (1.7-12.7); Neutrophils % 88.8 % (38.7-73.9); Platelet Count 336 T/CUMM (130-400); Red Blood Count 3.58 MC/CUMM (3.8-5.5); Red Cell Distribution Width 13.2 % (9.3-17.3); White Blood Count 33.5 T/CUMM (4-12)
[2021-05-02 04:07] LABS: Albumin 1.7 G/DL (3.4-5.0); Bilirubin,Total 0.4 MG/DL (0.20-1.00); Calcium 8.1 MG/DL (8.5-10.1); Osmolality,Calculated 270.5 MOS/KG (273-304); Potassium 3.1 MMOL/L (3.5-5.1)
[2021-05-02 04:12] LABS: Lymphocytes 4 % (20-55); Segmented Neutrophils 90 % (50-85); Total Cells Counted 100
[2021-05-02 04:13] LABS: Platelet Estimate Normal
[2021-05-02 04:26] LABS: ABG Base Excess 3.7 MMOL/L (-2.5-2.5); ABG HCO3 27.8 MMOL/L (20-26); ABG Oxygen Saturation 99.2 % (95-100); ABG PH 7.444 (7.35-7.45); ABG TCO2 25.6 MMOL/L (23-27)
[2021-05-02] MEDS ORDERED: SODIUM CHLOR 0.9% KCL 20 MEQ 20 MEQ/1,000 ML BAG IV SCH (05:00)
[2021-05-02] MEDS: SODIUM CHLORIDE 0.9% 1,000 ML IV SCH ×3 (05:37→21:14)
[2021-05-02] MEDS: DEXTROSE 5% 1,000 ML IV SCH (05:59)
[2021-05-02] MEDS: PIPERACILLIN/TAZOBACTAM 3,375 MG in SODIUM CHLORIDE 0.9% 100 ML IV SCH ×2 (08:01→20:40)
[2021-05-02] MEDS ORDERED: PROMETHAZINE 25 MG/1 ML VIAL IM ONE (08:09)
[2021-05-02] MEDS ORDERED: LIDOCAINE 2% 5 ML VIAL ONE (08:56)
[2021-05-02] MEDS ORDERED: SEVOFLURANE 1 UNIT/15 MINUTE INH ONE (08:56)
[2021-05-02] MEDS ORDERED: propofoL 200 MG/20 ML VIAL IV ONE (08:56)
[2021-05-02] MEDS ORDERED: ROCURONIUM 50 MG/5 ML VIAL IV ONE (08:56)
[2021-05-02] MEDS ORDERED: ONDANSETRON 4 MG/2 ML VIAL ONE (08:56)
[2021-05-02] MEDS ORDERED: ETOMIDATE 40 MG/20 ML VIAL IV ONE (08:56)
[2021-05-02] MEDS ORDERED: PHENYLEPHRINE 1 MG/10 ML SYRINGE IV ONE (09:14)
[2021-05-02] MEDS ORDERED: ePHEDrine 50 MG/ML VIAL ONE (09:28)
[2021-05-02] MEDS: DEXTROSE 5% KCL 20 MEQ 20 MEQ/1,000 ML BAG IV SCH (10:57)
[2021-05-02] MEDS: INSULIN LISPRO 100 UNIT/ML SUBCUT SCH ×3 (12:09→21:12)
[2021-05-02] MEDS: HYDROmorphone 2 MG/1 ML VIAL IV PRN ×2 (16:41→20:55)
[2021-05-03 04:48] LABS: Basophils # 0.1 10*3/uL (0.0-0.2); Basophils % 0.2 % (0.0-0.8); Eosinophils # 0.1 10*3/uL (0.0-0.87); Eosinophils % 0.3 % (0.00-10.9); Hematocrit 26.4 VOL% (42.0-52.0); Hemoglobin 8.7 GM/DL (14.0-18.0); Immature Granulocytes % 2.9 %; Immature Granulocytes Absolute 0.88 #; Lymphocytes # 2.1 10*3/uL (1.4-4.0); Mean Corpuscular Volume 84.3 FL (87-102); Monocytes % 7.2 % (1.7-12.7); Neutrophils % 82.4 % (38.7-73.9); Platelet Count 328 T/CUMM (130-400); Red Blood Count 3.13 MC/CUMM (3.8-5.5); Red Cell Distribution Width 13.7 % (9.3-17.3); White Blood Count 30.2 T/CUMM (4-12)
[2021-05-03 05:08] LABS: Hypochromasia 1+; Lymphocytes 4 % (20-55); Microcytosis 1+; Platelet Estimate Adequate; Segmented Neutrophils 88 % (50-85); Total Cells Counted 100
[2021-05-03 05:16] LABS: Alanine Aminotransferase < 6 U/L (16-61); Albumin 1.4 G/DL (3.4-5.0); Alkaline Phosphatase 140 U/L (45-117); Aspartate Amino Transferase 10 U/L (0-37); Blood Urea Nitrogen 33 MG/DL (7-18); Carbon Dioxide 26 MMOL/L (21-32); Estimated Glom Filtration Rate 12 ML/MIN; Glucose 196 MG/DL (74-106); Osmolality,Calculated 273.7 MOS/KG (273-304); Potassium 3.2 MMOL/L (3.5-5.1); Sodium 131 MMOL/L (136-145); Total Protein 6.5 G/DL (6.4-8.2)
[2021-05-03] MEDS ORDERED: SODIUM HYPOCHLORITE 0.25% IRRIG 473 ML BOTTLE TOP PRN (05:56)
[2021-05-03] MEDS: SODIUM CHLORIDE 0.9% 1,000 ML IV SCH ×3 (06:18→21:18)
[2021-05-03] MEDS: HYDROmorphone 2 MG/1 ML VIAL IV PRN ×3 (07:49→21:11)
[2021-05-03] MEDS: INSULIN LISPRO 100 UNIT/ML SUBCUT SCH ×4 (08:04→21:13)
[2021-05-03] MEDS: PIPERACILLIN/TAZOBACTAM 3,375 MG in SODIUM CHLORIDE 0.9% 100 ML IV SCH ×2 (08:19→21:10)
[2021-05-03] MEDS ORDERED: POTASSIUM CHLORIDE 20 MEQ TABLET PO ONE (09:01)
[2021-05-03] MEDS: METOPROLOL TARTRATE 25 MG TABLET PO SCH ×2 (09:50→21:13)
[2021-05-03] MEDS: SEVELAMER CARBONATE POWDER 2.4 GM PACK PO SCH ×2 (09:51→15:10)
[2021-05-03] MEDS: cloNIDine 0.1 MG TABLET PO SCH ×2 (09:51→21:13)
[2021-05-03] MEDS: DOCUSATE SODIUM 100 MG CAPSULE PO SCH ×2 (09:51→21:13)
[2021-05-03] MEDS: FERROUS SULFATE 325 MG TABLET PO SCH (09:51)
[2021-05-03] MEDS: SEVELAMER CARBONATE 800 MG TABLET PO SCH (16:58)
[2021-05-04] MEDS: HYDROmorphone 2 MG/1 ML VIAL IV PRN ×3 (01:43→19:00)
[2021-05-04 05:28] LABS: Basophils # 0.1 10*3/uL (0.0-0.2); Basophils % 0.2 % (0.0-0.8); Eosinophils # 0.1 10*3/uL (0.0-0.87); Eosinophils % 0.3 % (0.00-10.9); Hematocrit 24.8 VOL% (42.0-52.0); Hemoglobin 8.2 GM/DL (14.0-18.0); Immature Granulocytes % 2.9 %; Immature Granulocytes Absolute 0.73 #; Lymphocytes # 1.9 10*3/uL (1.4-4.0); Lymphocytes % 7.6 % (21.2-54.2); Mean Corpuscular HGB Conc 33.1 GM/DL (32-36); Mean Corpuscular Volume 85.5 FL (87-102); Mean Platelet Volume 11.3 FL (9.6-12.0); Monocytes % 8.6 % (1.7-12.7); Neutrophils % 80.4 % (38.7-73.9); Platelet Count 367 T/CUMM (130-400); Red Cell Distribution Width 14.2 % (9.3-17.3); White Blood Count 25.5 T/CUMM (4-12)
[2021-05-04 05:59] LABS: Alanine Aminotransferase < 6 U/L (16-61); Albumin 1.4 G/DL (3.4-5.0); Alkaline Phosphatase 230 U/L (45-117); Aspartate Amino Transferase 16 U/L (0-37); Bilirubin,Total < 0.39 MG/DL (0.20-1.00); Blood Urea Nitrogen 39 MG/DL (7-18); Calcium 7.9 MG/DL (8.5-10.1); Carbon Dioxide 25 MMOL/L (21-32); Estimated Glom Filtration Rate 10 ML/MIN; Glucose 90 MG/DL (74-106); Osmolality,Calculated 274.4 MOS/KG (273-304); Potassium 3.5 MMOL/L (3.5-5.1); Sodium 133 MMOL/L (136-145); Total Protein 6.8 G/DL (6.4-8.2)
[2021-05-04 06:06] LABS: Hypochromasia Slight; Lymphocytes 8 % (20-55); Platelet Estimate Normal; Segmented Neutrophils 83 % (50-85); Total Cells Counted 100
[2021-05-04] MEDS: INSULIN LISPRO 100 UNIT/ML SUBCUT SCH ×4 (07:43→21:06)
[2021-05-04] MEDS: SEVELAMER CARBONATE 800 MG TABLET PO SCH ×3 (08:00→18:56)
[2021-05-04] MEDS ORDERED: LIDOCAINE 2% 5 ML VIAL ONE (08:38)
[2021-05-04] MEDS ORDERED: propofoL 200 MG/20 ML VIAL IV ONE (08:38)
[2021-05-04] MEDS ORDERED: fentaNYL 100 MCG/2 ML VIAL ONE (08:39)
[2021-05-04] MEDS ORDERED: MIDAZOLAM 2 MG/2 ML VIAL ONE (08:39)
[2021-05-04] MEDS ORDERED: ePHEDrine 50 MG/ML VIAL ONE (09:22)
[2021-05-04] MEDS: SODIUM CHLORIDE 0.9% 1,000 ML IV SCH ×2 (10:05→13:20)
[2021-05-04] MEDS: PIPERACILLIN/TAZOBACTAM 3,375 MG in SODIUM CHLORIDE 0.9% 100 ML IV SCH ×2 (11:05→11:53)
[2021-05-04] MEDS: cloNIDine 0.1 MG TABLET PO SCH ×2 (11:52→21:06)
[2021-05-04] MEDS: METOPROLOL TARTRATE 25 MG TABLET PO SCH ×2 (11:52→21:06)
[2021-05-04] MEDS: DOCUSATE SODIUM 100 MG CAPSULE PO SCH ×2 (11:52→21:06)
[2021-05-04] MEDS: FERROUS SULFATE 325 MG TABLET PO SCH (11:52)
[2021-05-04] MEDS: cefTRIAXone 2,000 MG in SODIUM CHLORIDE 0.9% 100 ML IV SCH (13:28)
[2021-05-04] MEDS ORDERED: DEXTROSE 50% 25 GM/50 ML VIAL IV PRN (13:45)
[2021-05-04] MEDS ORDERED: GLUCAGON 1 MG VIAL IM PRN (13:45)
[2021-05-04] MEDS: ONDANSETRON 4 MG/2 ML VIAL IV PRN (15:00)
[2021-05-05] MEDS: HYDROmorphone 2 MG/1 ML VIAL IV PRN ×4 (03:30→19:05)
[2021-05-05 03:41] LABS: Basophils % 0.2 % (0.0-0.8); Eosinophils # 0.1 10*3/uL (0.0-0.87); Eosinophils % 0.5 % (0.00-10.9); Hematocrit 24.3 VOL% (42.0-52.0); Hemoglobin 7.7 GM/DL (14.0-18.0); Immature Granulocytes % 4.1 %; Immature Granulocytes Absolute 0.54 #; Lymphocytes # 1.2 10*3/uL (1.4-4.0); Lymphocytes % 9.4 % (21.2-54.2); Mean Corpuscular HGB Conc 31.7 GM/DL (32-36); Mean Corpuscular Volume 86.8 FL (87-102); Mean Platelet Volume 10.5 FL (9.6-12.0); Monocytes % 9.1 % (1.7-12.7); Neutrophils % 76.7 % (38.7-73.9); Platelet Count 364 T/CUMM (130-400); Red Cell Distribution Width 14.6 % (9.3-17.3); White Blood Count 13.1 T/CUMM (4-12)
[2021-05-05 04:09] LABS: Calcium 8.4 MG/DL (8.5-10.1); Osmolality,Calculated 271.4 MOS/KG (273-304); Potassium 3.6 MMOL/L (3.5-5.1)
[2021-05-05 04:30] LABS: Segmented Neutrophils 76 % (50-85); Total Cells Counted 100
[2021-05-05 04:31] LABS: Band Neutrophils 7 % (0-10); Hypochromasia Slight; Lymphocytes 8 % (20-55); Platelet Estimate Normal
[2021-05-05] MEDS: INSULIN LISPRO 100 UNIT/ML SUBCUT SCH ×4 (07:24→21:11)
[2021-05-05] MEDS: FERROUS SULFATE 325 MG TABLET PO SCH (08:51)
[2021-05-05] MEDS: METOPROLOL TARTRATE 25 MG TABLET PO SCH ×2 (08:51→21:11)
[2021-05-05] MEDS: SEVELAMER CARBONATE 800 MG TABLET PO SCH ×3 (08:51→16:16)
[2021-05-05] MEDS: DOCUSATE SODIUM 100 MG CAPSULE PO SCH ×2 (08:51→21:11)
[2021-05-05] MEDS: cloNIDine 0.1 MG TABLET PO SCH ×2 (08:51→21:11)
[2021-05-05] MEDS: cefTRIAXone 2,000 MG in SODIUM CHLORIDE 0.9% 100 ML IV SCH (12:48)
[2021-05-06 05:00] LABS: Basophils # 0.1 10*3/uL (0.0-0.2); Basophils % 0.6 % (0.0-0.8); Eosinophils # 0.1 10*3/uL (0.0-0.87); Eosinophils % 0.9 % (0.00-10.9); Hematocrit 26.1 VOL% (42.0-52.0); Hemoglobin 8.3 GM/DL (14.0-18.0); Immature Granulocytes Absolute 0.56 #; Lymphocytes # 1.3 10*3/uL (1.4-4.0); Lymphocytes % 11.3 % (21.2-54.2); Mean Corpuscular HGB Conc 31.8 GM/DL (32-36); Mean Corpuscular Volume 86.7 FL (87-102); Mean Platelet Volume 10.7 FL (9.6-12.0); Monocytes % 12.3 % (1.7-12.7); Neutrophils % 69.9 % (38.7-73.9); Platelet Count 393 T/CUMM (130-400); Red Blood Count 3.01 MC/CUMM (3.8-5.5); White Blood Count 11.2 T/CUMM (4-12)
[2021-05-06] MEDS: HYDROmorphone 2 MG/1 ML VIAL IV PRN ×4 (05:30→20:13)
[2021-05-06 05:31] LABS: Calcium 8.3 MG/DL (8.5-10.1); Osmolality,Calculated 275.4 MOS/KG (273-304); Potassium 3.8 MMOL/L (3.5-5.1)
[2021-05-06 05:54] LABS: Eosinophils 2 % (0-10); Lymphocytes 9 % (20-55); Segmented Neutrophils 76 % (50-85)
[2021-05-06 05:55] LABS: Hypochromasia Slight; Platelet Estimate Normal; Total Cells Counted 100
[2021-05-06] MEDS ORDERED: MIDAZOLAM 2 MG/2 ML VIAL ONE (06:50)
[2021-05-06] MEDS ORDERED: fentaNYL 100 MCG/2 ML VIAL ONE (06:50)
[2021-05-06] MEDS ORDERED: SODIUM CHLORIDE 0.9% 250 ML IV SCH (07:30)
[2021-05-06] MEDS ORDERED: ONDANSETRON 4 MG/2 ML VIAL ONE (07:52)
[2021-05-06] MEDS ORDERED: SEVOFLURANE 1 UNIT/15 MINUTE INH ONE (07:52)
[2021-05-06] MEDS ORDERED: ACETAMINOPHEN INJ 1,000 MG/100 ML VIAL IV ONE (07:52)
[2021-05-06] MEDS ORDERED: SODIUM CHLORIDE 0.9% 250 ML IV ONE (08:07)
[2021-05-06] MEDS ORDERED: ePHEDrine 50 MG/ML VIAL ONE (08:32)
[2021-05-06] MEDS: INSULIN LISPRO 100 UNIT/ML SUBCUT SCH ×4 (09:49→23:50)
[2021-05-06] MEDS: cloNIDine 0.1 MG TABLET PO SCH ×2 (09:50→20:13)
[2021-05-06] MEDS: SEVELAMER CARBONATE 800 MG TABLET PO SCH ×3 (09:50→18:08)
[2021-05-06] MEDS: FERROUS SULFATE 325 MG TABLET PO SCH (09:50)
[2021-05-06] MEDS: DOCUSATE SODIUM 100 MG CAPSULE PO SCH ×2 (09:50→20:13)
[2021-05-06] MEDS: METOPROLOL TARTRATE 25 MG TABLET PO SCH ×2 (09:50→20:13)
[2021-05-06] MEDS: cefTRIAXone 2,000 MG in SODIUM CHLORIDE 0.9% 100 ML IV SCH (11:27)
[2021-05-06] MEDS: DEXTROSE 50% 25 GM/50 ML VIAL IV PRN (14:32)
[2021-05-07] MEDS: HYDROmorphone 2 MG/1 ML VIAL IV PRN ×4 (02:30→21:54)
[2021-05-07 06:29] LABS: Basophils % 0.2 % (0.0-0.8); Eosinophils # 0.1 10*3/uL (0.0-0.87); Eosinophils % 0.8 % (0.00-10.9); Hematocrit 20.1 VOL% (42.0-52.0); Immature Granulocytes % 3.5 %; Immature Granulocytes Absolute 0.48 #; Lymphocytes # 0.9 10*3/uL (1.4-4.0); Lymphocytes % 6.8 % (21.2-54.2); Mean Corpuscular HGB Conc 30.3 GM/DL (32-36); Mean Corpuscular Volume 90.1 FL (87-102); Mean Platelet Volume 10.5 FL (9.6-12.0); Monocytes % 10.8 % (1.7-12.7); Neutrophils % 77.9 % (38.7-73.9); Platelet Count 389 T/CUMM (130-400); Red Blood Count 2.23 MC/CUMM (3.8-5.5); White Blood Count 13.7 T/CUMM (4-12)
[2021-05-07 06:47] LABS: Hemoglobin 6.1 GM/DL (14.0-18.0)
[2021-05-07 06:52] LABS: Hypochromasia 1+
[2021-05-07] MEDS ORDERED: SODIUM CHLORIDE 0.9% 1,000 ML IV PRN (06:52)
[2021-05-07 06:53] LABS: Microcytosis 1+; Platelet Estimate Normal
[2021-05-07 07:29] LABS: Alanine Aminotransferase 13 U/L (16-61); Albumin 1.5 G/DL (3.4-5.0); Alkaline Phosphatase 169 U/L (45-117); Aspartate Amino Transferase 37 U/L (0-37); Bilirubin,Total < 0.39 MG/DL (0.20-1.00); Blood Urea Nitrogen 21 MG/DL (7-18); Calcium 7.6 MG/DL (8.5-10.1); Carbon Dioxide 20 MMOL/L (21-32); Estimated Glom Filtration Rate 14 ML/MIN; Glucose 194 MG/DL (74-106); Osmolality,Calculated 277.1 MOS/KG (273-304); Potassium 4.3 MMOL/L (3.5-5.1); Sodium 135 MMOL/L (136-145); Total Protein 6.8 G/DL (6.4-8.2)
[2021-05-07] MEDS: INSULIN LISPRO 100 UNIT/ML SUBCUT SCH ×4 (08:56→21:48)
[2021-05-07] MEDS: cloNIDine 0.1 MG TABLET PO SCH ×2 (08:57→21:48)
[2021-05-07] MEDS: FERROUS SULFATE 325 MG TABLET PO SCH (08:57)
[2021-05-07] MEDS: SEVELAMER CARBONATE 800 MG TABLET PO SCH ×3 (08:57→17:53)
[2021-05-07] MEDS: DOCUSATE SODIUM 100 MG CAPSULE PO SCH ×2 (08:57→21:48)
[2021-05-07] MEDS: METOPROLOL TARTRATE 25 MG TABLET PO SCH ×2 (08:58→21:48)
[2021-05-07] MEDS: cefTRIAXone 2,000 MG in SODIUM CHLORIDE 0.9% 100 ML IV SCH (14:47)
[2021-05-07 22:40] LABS: Hematocrit 28.3 VOL% (42.0-52.0)
[2021-05-08 05:00] LABS: Basophils # 0.1 10*3/uL (0.0-0.2); Basophils % 0.3 % (0.0-0.8); Eosinophils # 0.1 10*3/uL (0.0-0.87); Eosinophils % 0.7 % (0.00-10.9); Hematocrit 27.9 VOL% (42.0-52.0); Hemoglobin 9.2 GM/DL (14.0-18.0); Immature Granulocytes % 2.4 %; Immature Granulocytes Absolute 0.44 #; Lymphocytes # 1.1 10*3/uL (1.4-4.0); Lymphocytes % 5.8 % (21.2-54.2); Mean Corpuscular Volume 87.5 FL (87-102); Mean Platelet Volume 10.1 FL (9.6-12.0); Monocytes % 11.6 % (1.7-12.7); NRBC # 0.02 10*3/uL; Neutrophils % 79.2 % (38.7-73.9); Platelet Count 397 T/CUMM (130-400); Red Blood Count 3.19 MC/CUMM (3.8-5.5); Red Cell Distribution Width 14.6 % (9.3-17.3); White Blood Count 18.6 T/CUMM (4-12)
[2021-05-08 05:31] LABS: Albumin 1.7 G/DL (3.4-5.0); Bilirubin,Total 0.6 MG/DL (0.20-1.00); Calcium 8.3 MG/DL (8.5-10.1); Potassium 3.9 MMOL/L (3.5-5.1)
[2021-05-08] MEDS: HYDROmorphone 2 MG/1 ML VIAL IV PRN ×4 (06:12→20:35)
[2021-05-08] MEDS: INSULIN LISPRO 100 UNIT/ML SUBCUT SCH ×4 (08:08→20:31)
[2021-05-08] MEDS: DOCUSATE SODIUM 100 MG CAPSULE PO SCH ×2 (08:09→20:31)
[2021-05-08] MEDS: FERROUS SULFATE 325 MG TABLET PO SCH (08:09)
[2021-05-08] MEDS: METOPROLOL TARTRATE 25 MG TABLET PO SCH ×2 (08:09→20:31)
[2021-05-08] MEDS: SEVELAMER CARBONATE 800 MG TABLET PO SCH ×3 (08:09→16:15)
[2021-05-08] MEDS: cloNIDine 0.1 MG TABLET PO SCH ×2 (08:09→20:31)
[2021-05-08] MEDS: cefTRIAXone 2,000 MG in SODIUM CHLORIDE 0.9% 100 ML IV SCH (13:33)
[2021-05-08] MEDS: GABAPENTIN 300 MG CAPSULE PO SCH ×2 (16:15→20:31)
[2021-05-09] MEDS: HYDROmorphone 2 MG/1 ML VIAL IV PRN ×4 (06:59→12:20)
[2021-05-09 07:05] LABS: Basophils % 0.3 % (0.0-0.8); Eosinophils # 0.2 10*3/uL (0.0-0.87); Eosinophils % 1.1 % (0.00-10.9); Hematocrit 30.7 VOL% (42.0-52.0); Hemoglobin 9.5 GM/DL (14.0-18.0); Immature Granulocytes % 1.7 %; Immature Granulocytes Absolute 0.26 #; Lymphocytes # 1.3 10*3/uL (1.4-4.0); Lymphocytes % 8.2 % (21.2-54.2); Mean Corpuscular HGB Conc 30.9 GM/DL (32-36); Mean Corpuscular Volume 90.3 FL (87-102); Mean Platelet Volume 10.2 FL (9.6-12.0); Monocytes % 11.7 % (1.7-12.7); Platelet Count 388 T/CUMM (130-400); Red Cell Distribution Width 14.9 % (9.3-17.3); White Blood Count 15.7 T/CUMM (4-12)
[2021-05-09 07:25] LABS: Albumin 1.6 G/DL (3.4-5.0); Bilirubin,Total 0.5 MG/DL (0.20-1.00); Calcium 8.2 MG/DL (8.5-10.1); Osmolality,Calculated 279.8 MOS/KG (273-304); Potassium 4.3 MMOL/L (3.5-5.1); Total Protein 7.2 G/DL (6.4-8.2)
[2021-05-09] MEDS: INSULIN LISPRO 100 UNIT/ML SUBCUT SCH ×4 (08:49→20:42)
[2021-05-09] MEDS: DOCUSATE SODIUM 100 MG CAPSULE PO SCH ×2 (08:50→20:39)
[2021-05-09] MEDS: cloNIDine 0.1 MG TABLET PO SCH ×2 (08:50→20:39)
[2021-05-09] MEDS: GABAPENTIN 300 MG CAPSULE PO SCH ×3 (08:50→20:39)
[2021-05-09] MEDS: METOPROLOL TARTRATE 25 MG TABLET PO SCH ×2 (08:50→20:39)
[2021-05-09] MEDS: FERROUS SULFATE 325 MG TABLET PO SCH (08:50)
[2021-05-09] MEDS: SEVELAMER CARBONATE 800 MG TABLET PO SCH ×3 (08:50→16:32)
[2021-05-09] MEDS: ONDANSETRON 4 MG/2 ML VIAL IV PRN ×2 (12:20→17:41)
[2021-05-09] MEDS: cefTRIAXone 2,000 MG in SODIUM CHLORIDE 0.9% 100 ML IV SCH (12:25)
[2021-05-10 06:03] LABS: Basophils % 0.2 % (0.0-0.8); Eosinophils # 0.1 10*3/uL (0.0-0.87); Eosinophils % 0.8 % (0.00-10.9); Hemoglobin 9.1 GM/DL (14.0-18.0); Immature Granulocytes % 1.2 %; Immature Granulocytes Absolute 0.21 #; Lymphocytes # 1.3 10*3/uL (1.4-4.0); Lymphocytes % 7.4 % (21.2-54.2); Mean Corpuscular HGB Conc 32.5 GM/DL (32-36); Mean Corpuscular Volume 89.2 FL (87-102); Monocytes % 7.2 % (1.7-12.7); Neutrophils % 83.2 % (38.7-73.9); Platelet Count 370 T/CUMM (130-400); Red Blood Count 3.14 MC/CUMM (3.8-5.5); White Blood Count 16.8 T/CUMM (4-12)
[2021-05-10 06:40] LABS: Albumin 1.6 G/DL (3.4-5.0); Bilirubin,Total 0.8 MG/DL (0.20-1.00); Calcium 8.1 MG/DL (8.5-10.1); Osmolality,Calculated 282.1 MOS/KG (273-304); Potassium 4.7 MMOL/L (3.5-5.1); Total Protein 7.1 G/DL (6.4-8.2)
[2021-05-10] MEDS: INSULIN LISPRO 100 UNIT/ML SUBCUT SCH ×4 (09:41→21:57)
[2021-05-10] MEDS: METOPROLOL TARTRATE 25 MG TABLET PO SCH ×2 (09:42→21:52)
[2021-05-10] MEDS: GABAPENTIN 300 MG CAPSULE PO SCH ×3 (09:42→21:52)
[2021-05-10] MEDS: SEVELAMER CARBONATE 800 MG TABLET PO SCH ×3 (09:42→16:44)
[2021-05-10] MEDS: cloNIDine 0.1 MG TABLET PO SCH ×2 (09:42→21:52)
[2021-05-10] MEDS: DOCUSATE SODIUM 100 MG CAPSULE PO SCH ×2 (09:42→21:52)
[2021-05-10] MEDS: FERROUS SULFATE 325 MG TABLET PO SCH (09:42)
[2021-05-10] MEDS: HYDROmorphone 2 MG/1 ML VIAL IV PRN (10:54)
[2021-05-10] MEDS: cefTRIAXone 2,000 MG in SODIUM CHLORIDE 0.9% 100 ML IV SCH (12:29)
[2021-05-11 05:19] LABS: Basophils # 0.1 10*3/uL (0.0-0.2); Basophils % 0.4 % (0.0-0.8); Eosinophils # 0.1 10*3/uL (0.0-0.87); Eosinophils % 0.7 % (0.00-10.9); Hematocrit 28.4 VOL% (42.0-52.0); Hemoglobin 8.9 GM/DL (14.0-18.0); Immature Granulocytes % 0.9 %; Immature Granulocytes Absolute 0.15 #; Lymphocytes # 1.4 10*3/uL (1.4-4.0); Lymphocytes % 8.8 % (21.2-54.2); Mean Corpuscular HGB Conc 31.3 GM/DL (32-36); Mean Corpuscular Volume 91.3 FL (87-102); Mean Platelet Volume 10.5 FL (9.6-12.0); Monocytes % 7.4 % (1.7-12.7); Neutrophils % 81.8 % (38.7-73.9); Platelet Count 365 T/CUMM (130-400); Red Blood Count 3.11 MC/CUMM (3.8-5.5); Red Cell Distribution Width 14.7 % (9.3-17.3); White Blood Count 15.9 T/CUMM (4-12)
[2021-05-11 05:48] LABS: Albumin 1.5 G/DL (3.4-5.0); Bilirubin,Total 0.5 MG/DL (0.20-1.00); Calcium 7.8 MG/DL (8.5-10.1); Osmolality,Calculated 283.1 MOS/KG (273-304); Potassium 5.4 MMOL/L (3.5-5.1); Total Protein 6.2 G/DL (6.4-8.2)
[2021-05-11] MEDS: INSULIN LISPRO 100 UNIT/ML SUBCUT SCH ×2 (08:40→13:17)
[2021-05-11] MEDS: METOPROLOL TARTRATE 25 MG TABLET PO SCH (08:40)
[2021-05-11] MEDS: GABAPENTIN 300 MG CAPSULE PO SCH ×2 (08:40→14:46)
[2021-05-11] MEDS: FERROUS SULFATE 325 MG TABLET PO SCH (08:40)
[2021-05-11] MEDS: DOCUSATE SODIUM 100 MG CAPSULE PO SCH (08:40)
[2021-05-11] MEDS: cloNIDine 0.1 MG TABLET PO SCH (08:40)
[2021-05-11] MEDS: SEVELAMER CARBONATE 800 MG TABLET PO SCH ×2 (08:40→13:16)
[2021-05-11] MEDS: cefTRIAXone 2,000 MG in SODIUM CHLORIDE 0.9% 100 ML IV SCH (13:16)
[2021-05-11 13:28] VITALS: BP 157/67
[2021-05-11] MEDS: HYDROmorphone 2 MG/1 ML VIAL IV PRN (13:41)
== END 2021-05-11 15:09 | DRG 853 ==
LOC: N.ED 06:07 → N.EDINP 08:35 → SUATTDRO 08:35 → N.ICU 10:26 → N.5E 05-05 09:32
PROVIDERS: ADMIT Internal Medicine; ATTEND Family Medicine